=== PATIENT | male | born 1965 | race Caucasian/White ===

== ENCOUNTER 2017-06-28 09:21 | Emergency (ER) | payer BC ==
[~2017-06-28] VITALS: Ht 188 cm; Wt 128.3 kg
[~2017-06-28 09:21] MED LIST: APRESOLINE50 MG PO; Aspirin E.C. PO; FLEXERIL10 MG PO; FLONASE16 G1 BOTH NARES; IPRATROPIUM BRO15 ML BOTH NARES; LANTUS 3 M100 UNITS1 SC; LIPITOR80 MG PO; LOPRESSOR100 M1 PO; NORVASC10 MG PO; NOVOLOG PE100 UNITS/ SC; PROTONIX40 MG PO; Protonix PO; ROCALTROL0.25 MCG PO; Rocephin IV; TANZEUM30 MG/0.5 SC; TRESIBA FL100 UNIT/1 SC; ZANTAC300 MG PO; Zestril,Prinivil PO; Zocor PO
[2017-06-28 11:05] LABS: BASOPHIL COUNT 0.1 K/uL (0-0.1); EOSINOPHIL (%) 1.9 % (0-5); EOSINOPHIL COUNT 0.1 K/uL (0-0.3); HEMATOCRIT 42.1 % (38.0-50.0); IMMATURE GRANULOCYTE (%) 0.4 % (0.0-0.7); INSTRUMENT ABS NEUTROPHIL CT 4.7 K/uL; LYMPHOCYTE COUNT 1.8 K/uL (1.0-2.8); MCH 29.2 PG (29.0-34.0); MCHC 33.7 G/DL (30.0-36.0); MCV 86.4 FL (86-99); MONOCYTE (%) 7.4 % (3-12); MONOCYTE COUNT 0.5 K/uL (0-0.8); NEUTROPHIL (%) 64.7 % (45-76); NEUTROPHIL COUNT 4.7 K/uL (1.8-6.4); PLATELET COUNT 148 K/uL (156-360); RBC DIS.WIDTH-CV 13.2 % (11.8-14.6); RBC DIS.WIDTH-SD 40.9 % (39-53); RED BLOOD COUNT 4.87 M/uL (4.00-5.50); WHITE BLOOD COUNT 7.2 K/uL (4.1-10.2)
[2017-06-28 11:07] LABS: CARBON DIOXIDE (BICARBONATE) 25.6 MEQ/L (20-31)
[2017-06-28 11:18] LABS: CHLORIDE 105 mEq/L (99-109); POTASSIUM 5.1 mEq/L (3.7-5.4); SODIUM 134 mEq/L (136-147)
[2017-06-28 11:19] LABS: GLUCOSE 400 mg/dL (70-99)
[2017-06-28 11:21] LABS: ANION GAP 10 MEQ/L (2-14)
[2017-06-28 11:23] LABS: GFR ESTIMATE (CALCULATED) 26 mL/min/
[2017-06-28 11:24] LABS: UREA NITROGEN (BUN) 37 mg/dL (9-23)
[2017-06-28 11:39] LABS: POINT-OF-CARE METER ID UU13113702
[2017-06-28 11:45] LABS: POINT-OF-CARE METER ID UU14174212
[2017-06-28 12:40] LABS: POINT-OF-CARE METER ID UU13113702
[2017-06-28 13:16] LABS: POINT-OF-CARE METER ID UU13113702
[2017-06-28 14:09] VITALS: BP 176/93
== END 2017-06-28 14:10 | disposition home or self-care (01) ==
LOC: EME 09:21 → EDSTATUS 09:24 → SDC 11:39 → EME 14:10
PROVIDERS: Emergency Medicine; Internal Medicine
DX: E11.65 Type 2 diabetes mellitus with hyperglycemia (principal); Z79.4 Long term (current) use of insulin; I25.2 Old myocardial infarction; Z95.1 Presence of aortocoronary bypass graft; Z87.891 Personal history of nicotine dependence; Z88.8 Allergy status to other drugs, medicaments and biological substances
CPT/HCPCS: 80048; 82010; 82803; 82948; 85025; 99281; 99285; J7030

== ENCOUNTER 2017-07-12 06:30 | Day surgery (SDC) | payer BC ==
[~2017-07-12] VITALS: Ht 188 cm; Wt 124.7 kg
[2017-07-12 07:02] LABS: POINT-OF-CARE METER ID UU14174212
[2017-07-12] MEDS ORDERED: ULTRAM50 MG PO (07:05)
[2017-07-12 07:13] VITALS: BP 176/93
[2017-07-12 10:01] LABS: POINT-OF-CARE METER ID UU13113675; POINT-OF-CARE USER ID ADMKMM76
[2017-07-12 10:54] VITALS: BP 166/92
[2017-07-12 11:51] VITALS: BP 170/90
== END 2017-07-12 11:51 | disposition home or self-care (01) ==
LOC: SDC 06:30
PROVIDERS: Internal Medicine
DX: E11.3522 Type 2 diabetes mellitus with proliferative diabetic retinopathy with traction retinal detachment involving the macula, left eye (principal); H43.12 Vitreous hemorrhage, left eye; I12.9 Hypertensive chronic kidney disease with stage 1 through stage 4 chronic kidney disease, or unspecified chronic kidney disease; E11.22 Type 2 diabetes mellitus with diabetic chronic kidney disease; N18.9 Chronic kidney disease, unspecified; I25.10 Atherosclerotic heart disease of native coronary artery without angina pectoris; I48.91 Unspecified atrial fibrillation; E78.5 Hyperlipidemia, unspecified; E11.42 Type 2 diabetes mellitus with diabetic polyneuropathy; Z86.718 Personal history of other venous thrombosis and embolism; Z79.01 Long term (current) use of anticoagulants; Z79.4 Long term (current) use of insulin; Z87.891 Personal history of nicotine dependence; Z95.5 Presence of coronary angioplasty implant and graft
CPT/HCPCS: 82948; J0690